=== PATIENT | male | born 1965 | race Caucasian/White ===

== ENCOUNTER 2020-12-20 16:23 | Emergency (ER) | payer SELFPAY ==
[~2020-12-20] VITALS: Wt 83.9 kg
[~2020-12-20 16:23] MED LIST: SEPTRA DS 800 M1 TAB PO; VICODIN ES 7501 TAB PO; ZOVIRAX800 MG PO
== END 2020-12-20 18:51 | disposition home or self-care (01) ==
LOC: ED 16:23
DX: S61.012A Laceration without foreign body of left thumb without damage to nail, initial encounter (principal); Z79.899 Other long term (current) drug therapy; X58.XXXA Exposure to other specified factors, initial encounter; Y93.89 Activity, other specified; Y92.89 Other specified places as the place of occurrence of the external cause; Y99.8 Other external cause status